=== PATIENT | male | born 1955 | race Caucasian/White ===

== ENCOUNTER 2017-06-10 20:59 | Emergency (ER) | payer MEDICARE ==
[~2017-06-10 20:59] MED LIST: ISOVUE-370 76%-LOCM 1 ML ONE
[2017-06-10] MEDS ORDERED: Fentanyl 100 MCG/2 ML VIAL ONE (22:17)
--- NOTE | 2017-06-10 23:40 | CT ---
CONTRAST ENHANCED CT IMAGES ABDOMEN AND PELVIS 06/10/17 HISTORY: 61-year-old male with left lower quadrant pain. IV contrast was given. Unfortunately oral contrast w as not given. This does decrease the sensitivity for detection of GI pathology. The lung bases demonstrate some minimal areas of scarring and mild fibrotic changes unchanged since the previous exam. No evidence of free intraperitoneal air seen. The liver and spleen are unremarkable. Surgical alexx seen in the stomach. Coronary artery calcifi cations seen. Adrenal glands and kidneys demonstrate no definite evidence of masses. Some calculi se en in the lower pole of the left kidney and mid pole of the left kidney. No evidence of periaortic lymphadenopathy seen. Atherosclerotic calcifications seen in the abdominal aorta. No dilated loops of bowel seen. There does appear to be some fat stranding surrounding the descending colon and portions of the prox imal sigmoid colon this may represent some inflammatory change concerning for possible diverticuliti s. IMPRESSION: Some inflammatory change surrounding the descending and proximal sigmoid colon, possibly representi ng changes of diverticulitis. No definite evidence of an abscess is seen. POS: [facility]
== END 2017-06-11 | disposition home or self-care (01) ==
LOC: ERS 20:59
DX: K57.92 Diverticulitis of intestine, part unspecified, without perforation or abscess without bleeding (principal); E11.9 Type 2 diabetes mellitus without complications; I10 Essential (primary) hypertension; F41.9 Anxiety disorder, unspecified; F32.9 Major depressive disorder, single episode, unspecified; F17.220 Nicotine dependence, chewing tobacco, uncomplicated; Z79.82 Long term (current) use of aspirin; Z79.84 Long term (current) use of oral hypoglycemic drugs; Z79.899 Other long term (current) drug therapy
CPT/HCPCS: 74177; 96374; J3010

== ENCOUNTER 2017-07-13 11:15 | Inpatient (IN) | payer MEDICARE ==
[2017-07-14 09:04] VITALS: BMI 35.2
[2017-07-20] MEDS ORDERED: cefOXitin Sodium 2 GM, Syringe 1 ML in Sterile Water 10 ML SLOW IVP SCH (07:15)
[2017-07-20] MEDS ORDERED: Midazolam HCl 2 mg/2 ml Vial ONE ×2 (07:57→09:10)
[2017-07-20] MEDS ORDERED: Fentanyl 100 MCG/2 ML VIAL ONE ×5 (07:57→14:21)
[2017-07-20] MEDS ORDERED: Ketorolac Tromethamine 30 MG/ML VIAL ONE (08:00)
[2017-07-20] MEDS ORDERED: Bupivacaine/Epinephrine 0.25% 30 ML VIAL ONE (09:14)
[2017-07-20] MEDS ORDERED: Lidocaine 1% w/Epinephrine 1:200K 30 ML VIAL ONE (10:12)
[2017-07-20] MEDS: Lorazepam 1 MG TAB PO SCH ×2 (15:00→20:23)
[2017-07-20] MEDS ORDERED: hydrALAZINE 20 MG/ML VIAL SLOW IVP PRN (15:23)
[2017-07-20] MEDS ORDERED: Promethazine HCl 25 MG/ML VIAL IM PRN (15:23)
[2017-07-20] MEDS ORDERED: Ondansetron HCl/PF 4 MG/2 ML Vial IVP PRN (15:23)
[2017-07-20] MEDS ORDERED: Morphine 4 MG/ML VIAL SLOW IVP PRN (15:23)
[2017-07-20] MEDS ORDERED: Morphine 4 MG/ML VIAL ONE (15:29)
[2017-07-20] MEDS ORDERED: Bupivacaine HCl 0.5%/Epinephrine 1:200,000/PF 30 ml Vial ONE (16:26)
[2017-07-20] MEDS ORDERED: Bupivacaine PF 0.5% 30 ML VIAL ONE (16:26)
[2017-07-20] MEDS ORDERED: Ondansetron HCl/PF 4 MG/2 ML Vial ONE (16:34)
[2017-07-20] MEDS ORDERED: Propofol 200 MG/20 ML VIAL ONE (16:34)
[2017-07-20] MEDS ORDERED: Lidocaine 1% PF 5 ML VIAL ONE (16:34)
[2017-07-20] MEDS ORDERED: Glycopyrrolate 0.2 MG/ML 5 ML SYRINGE ONE (16:34)
[2017-07-20] MEDS ORDERED: Dexamethasone 20 MG/5 ML VIAL ONE (16:34)
[2017-07-20] MEDS ORDERED: PHENYLEPHRINE-NS 100 MCG/ML 10 ML SYRINGE ONE (16:34)
[2017-07-20] MEDS: metFORMIN 500 MG TAB PO SCH (18:16)
[2017-07-20] MEDS: D5 1/2 NS w/20 mEq KCL 1,000 ML IV SCH ×2 (18:50→23:54)
[2017-07-20] MEDS: Ketorolac Tromethamine 30 MG/ML VIAL IVP SCH ×2 (18:50→23:54)
[2017-07-20] MEDS: Acetaminophen 1,000 MG in Premix Bag 1 BAG IVPB SCH ×2 (18:51→23:55)
[2017-07-20] MEDS: Lacosamide 50 mg Tablet PO SCH (20:22)
[2017-07-20] MEDS: Famotidine 20 MG TAB PO SCH (20:22)
[2017-07-20] MEDS: Temazepam 15 MG CAP PO SCH (20:23)
[2017-07-20] MEDS: Metoprolol Tartrate 100 MG TAB PO SCH (20:23)
[2017-07-20] MEDS: Famotidine/PF 20 mg/2ml Vial SLOW IVP SCH (20:28)
[2017-07-20] MEDS: Enoxaparin Sodium 40 MG/0.4 ML SYRINGE SC SCH (20:28)
[2017-07-21] MEDS: Ketorolac Tromethamine 30 MG/ML VIAL IVP SCH ×3 (05:19→18:06)
[2017-07-21] MEDS: Acetaminophen 1,000 MG in Premix Bag 1 BAG IVPB SCH ×2 (05:20→12:20)
[2017-07-21] MEDS: Morphine 4 MG/ML VIAL SLOW IVP PRN ×2 (05:20→12:25)
[2017-07-21] MEDS: Levothyroxine Sodium 88 MCG TAB PO SCH (05:26)
[2017-07-21 06:27] LABS: #Lymphocytes 2.4 thou/uL (1.20-3.40); #Monocytes 1.5 thou/uL (0.11-0.59); #Neutrophils 7.9 thou/uL (1.40-6.50); %Basophils 0.3 % (0.0-1.0); %Eosinophils 0.1 % (0.0-10.0); %Lymphocytes 20.4 % (21.0-51.0); %Monocytes 12.4 % (0.0-10.0); Hematocrit 41.7 % (42.0-52.0); Red Blood Cell (RBC) Count 4.46 mill/uL (4.70-6.10); White Blood Cell (WBC) Count 11.9 thou/uL (4.8-10.8)
[2017-07-21 06:32] LABS: Anion Gap 11 mmol/L (10-20); BUN (Urea Nitrogen) 9 mg/dL (8.4-25.7); Calc. Creatinine Clearance 153 mL/min (70-130); Calcium 8.8 mg/dL (7.8-10.44); Carbon Dioxide 24 mmol/L (22-29); Chloride 103 mmol/L (98-107); Estimated GFR-MDRD Greater than 90
[2017-07-21] MEDS: Metoprolol Tartrate 100 MG TAB PO SCH ×3 (09:01→20:55)
[2017-07-21] MEDS: Lisinopril 20 MG TAB PO SCH (09:01)
[2017-07-21] MEDS: Famotidine 20 MG TAB PO SCH ×2 (09:02→20:22)
[2017-07-21] MEDS: Amlodipine 10 MG TAB PO SCH (09:02)
[2017-07-21] MEDS: Aspirin 81 mg Enteric Coated Tablet PO SCH (09:02)
[2017-07-21] MEDS: metFORMIN 500 MG TAB PO SCH ×2 (09:02→18:13)
[2017-07-21] MEDS: Lorazepam 1 MG TAB PO SCH ×3 (09:03→20:23)
[2017-07-21] MEDS: Famotidine/PF 20 mg/2ml Vial SLOW IVP SCH ×2 (09:03→20:13)
[2017-07-21] MEDS ORDERED: HYDROcodone/Acetaminophen 7.5/325 mg Tablet PO PRN ×2 (13:01)
--- NOTE | 2017-07-21 13:51 | PRG ---
DATE OF SERVICE: 07/21/2017 SUBJECTIVE: Mr. Cueto is postoperative day #1 from a laparoscopic sigmoid colectomy. He is without complaint today. He is very happy with his results of his surgery and his recovery thus far. He not es very minimal discomfort. He had discomfort with his Frey catheter which was removed this morning and notes that he has already voided several times since then. He is tolerating his clear liquids a nd denies nausea or bloating. He notes significant rumbling within his bowels. He has already showe red today and ambulated. PHYSICAL EXAMINATION: VITAL SIGNS: He is afebrile. Vital signs are within normal limits. His urine output overnight was 1200 mL. LUNGS: Clear to auscultation. CARDIAC: Regular rate and rhythm. ABDOMEN: Soft and nontender. Incisions are all nicely healed. Bowel sounds are present and normoac tive. LABORATORY STUDIES: His hemoglobin is 14.3. His basic metabolic panel and chemistries are essential ly normal. ASSESSMENT: The patient is doing extremely well following laparoscopic sigmoid colectomy. He will c ontinue clear liquids today and advance to full liquids tomorrow. Assuming he continues to show evid ence of bowel function, I would anticipate discharge tomorrow.
[2017-07-21] MEDS: D5 1/2 NS w/20 mEq KCL 1,000 ML IV SCH ×2 (17:52→19:31)
[2017-07-21] MEDS: Enoxaparin Sodium 40 MG/0.4 ML SYRINGE SC SCH (20:22)
[2017-07-21] MEDS: Temazepam 15 MG CAP PO SCH (20:22)
[2017-07-21] MEDS: Lacosamide 50 mg Tablet PO SCH (20:39)
[2017-07-22] MEDS: Ketorolac Tromethamine 30 MG/ML VIAL IVP SCH ×3 (00:24→12:58)
[2017-07-22] MEDS: Levothyroxine Sodium 88 MCG TAB PO SCH (06:15)
[2017-07-22] MEDS: D5 1/2 NS w/20 mEq KCL 1,000 ML IV SCH (06:16)
[2017-07-22] MEDS: Metoprolol Tartrate 100 MG TAB PO SCH (08:27)
[2017-07-22] MEDS: Amlodipine 10 MG TAB PO SCH (08:27)
[2017-07-22] MEDS: Aspirin 81 mg Enteric Coated Tablet PO SCH (08:27)
[2017-07-22] MEDS: Lisinopril 20 MG TAB PO SCH (08:28)
[2017-07-22] MEDS: Lorazepam 1 MG TAB PO SCH ×2 (08:28→13:01)
[2017-07-22] MEDS: Famotidine 20 MG TAB PO SCH (08:28)
[2017-07-22] MEDS: metFORMIN 500 MG TAB PO SCH (08:30)
[2017-07-22] MEDS: Famotidine/PF 20 mg/2ml Vial SLOW IVP SCH (08:53)
[2017-07-22 12:02] VITALS: TEMP 97.8
[2017-07-22 16:06] VITALS: BP 129/80
--- NOTE | 2017-07-23 14:18 | OP ---
DATE OF PROCEDURE: 07/20/2017 PREOPERATIVE DIAGNOSIS: Sigmoid colon diverticulitis. POSTOPERATIVE DIAGNOSIS: Sigmoid colon diverticulitis. OPERATION PERFORMED: Sigmoid colectomy with splenic flexure mobilization. SURGEON: Kirill Jacobson M.D. ANESTHESIA: General endotracheal. INDICATIONS: The patient is a 61-year-old obese white male. He has a long history of markedly sympt omatic interstitial cystitis. He has also been recognized to have had several episodes of sigmoid co richie diverticulitis. He continues to have pain in the left lower quadrant that seemed like potentiall y more related to diverticulitis than the cystitis and he requests surgical resection of this segment of bowel. DESCRIPTION OF OPERATION: Informed consent was obtained. The patient was taken to the operating fel[facility] m where general endotracheal anesthesia was obtained with the patient in supine position. Abdomen wa s prepped with ChloraPrep and draped in sterile fashion. Local anesthetic was infiltrated and a 5-mm supraumbilical incision was created through which a Veress needle was passed into the peritoneal cav ity and pneumoperitoneum established using carbon dioxide up to a pressure of 15 mmHg. A 5-mm trocar port was passed through this same incision. Laparoscopic camera was passed through this port. Unde r direct vision, a 12-mm right lower quadrant port was placed. The bowel was examined and then the e xtraction site was selected in the left lower quadrant. An 8-cm oblique incision was created in the left lower quadrant and muscle splitting technique was used to gain access into the abdominal cavity. The Zak wound retractor was assembled in this area and the GelPort was affixed to the wound retr actor. Left hand was passed into the abdominal cavity and dissection was continued. There was one focal are a of fairly dense diverticular disease and inflammation and this is in the relatively proximal sigmoi d colon. I mobilized the left colon along the white line of Toldt up to the splenic flexure and then completed the splenic flexure mobilization using the LigaSure device, dissecting the omentum off of the distal transverse colon and fully mobilizing the flexure. Attention was turned to the distal colon. The sigmoid colon was fully mobilized down into the pelvis . There was a fairly long segment of unremarkable sigmoid colon distal to the area of the diverticul ar inflammation. It was decided, however, that would be better to perform an anastomosis close to th e rectosigmoid junction. At the level of the rectosigmoid junction, I dissected the mesenteric windo w and divided the distal sigmoid colon with a single fire of the [place] stapler using a blue load. The mesentery was taken down in a proximal fashion using the LigaSure device and staying relatively c lose to the bowel wall. Once I had dissected beyond the areas of diverticular inflammation, I identi fied a segment of the left colon that would easily reach down into the pelvis to the staple line. Th is was marked and the bowel was then exteriorized through the Zak wound retractor. The operative site was toweled off with sterile towels and segregated instruments were used while the bowel was going to be opened. A colotomy was created and the bowel was inspected for caliber. It w as found to be relatively snagged and had difficulty passing anything that larger than a 29 mm anvil within this. The 29-mm EEA stapler was then selected and the anvil of that stapler was passed throug h the colotomy and brought out the antimesenteric a few centimeters proximally. The colotomy was exc luded with a single fire of the [place] stapler and the resected segment of colon with the colotomy w as then removed from the field. The spike of the anvil was painted with Betadine. Gloves were clay ed before continuing and all instruments used while the bowel was opened were removed from the field. A 3-0 Prolene pursestring suture was placed around the anvil site and the bowel was dropped back do wn into the abdominal cavity. Pneumoperitoneum was reestablished and the laparoscopic surgery was continued. From below, the EEA sizers were carefully passed up to the rectal staple line. The 29-mm EEA stapler was then brought through the anus up to the staple line and the spike was advanced through the stapl e line under direct vision. The anvil in the descending colon was affixed to the stapler. The two s egments were approximated and anastomosed by firing the stapler. The doughnuts were inspected and fo und to be intact. They were not submitted. A leak test was performed by insufflating air through a proctoscope while the anastomosis was under water. There was excellent insufflation of the bowel, bu t no evidence of air leak and the proctoscope was removed. The intra-abdominal contents were thoroughly irrigated. All irrigant was aspirated. There had been no substantial blood loss at any location. The fascia at the 12-mm port site was closed with 0 Vicry l suture using a GraNee needle. All ports and instruments were removed under direct vision. In the left lower quadrant, the fascia was closed with two layers of running #1 PDS suture. Additional loca l anesthetic was infiltrated during closure. Sterile gown and gloves were put on by the members of the closing team. The sterile closing instrume nts were utilized. The wound was thoroughly irrigated with 2 liters of saline under pressure. The i ncisions were then closed using 3-0 Vicryl to approximate the deep layers and 4-0 Monocryl subcuticul ar suture to approximate the skin edges. Dermabond was placed externally. There were no complicatio ns. The patient tolerated the procedure well and was taken to recovery room in stable condition.
== END 2017-07-22 16:46 | disposition home or self-care (01) | DRG 331 ==
LOC: SURG A 07-20 06:12
PROVIDERS: ADMIT Specialist; ATTEND Specialist
PROC: 0DTN4ZZ Resection of Sigmoid Colon, Percutaneous Endoscopic Approach (ICD-10-PCS; principal; 2017-07-20)
PROC: 3E0T3BZ Introduction of Anesthetic Agent into Peripheral Nerves and Plexi, Percutaneous Approach (ICD-10-PCS; 2017-07-20)
DX: K57.32 Diverticulitis of large intestine without perforation or abscess without bleeding (principal); I10 Essential (primary) hypertension; E11.9 Type 2 diabetes mellitus without complications; Z68.35 Body mass index [BMI] 35.0-35.9, adult; E66.9 Obesity, unspecified; Z88.5 Allergy status to narcotic agent; Z82.49 Family history of ischemic heart disease and other diseases of the circulatory system; Z83.3 Family history of diabetes mellitus
CPT/HCPCS: 36415; 36416; 80048; 85025; 88307; 90471; 90732; A4216; G0009; J0131; J0670; J0694; J1100; J1650; J1885; J2001; J2250; J2270; J2405; J2704; J3010; S0020; S0028

== ENCOUNTER 2017-07-14 08:35 | Outpatient (CLI) | payer MEDICARE ==
[2017-07-14 10:09] LABS: #Basophils 0.1 thou/uL (0.0-0.2); #Eosinphils 0.3 thou/uL (0.0-0.7); #Lymphocytes 2.9 thou/uL (1.20-3.40); #Monocytes 0.8 thou/uL (0.11-0.59); #Neutrophils 4.8 thou/uL (1.40-6.50); %Basophils 0.9 % (0.0-1.0); %Eosinophils 3.3 % (0.0-10.0); %Lymphocytes 32.5 % (21.0-51.0); %Monocytes 9.2 % (0.0-10.0); Mean Platelet Volume 6.8 fL (7.4-10.4); Red Blood Cell (RBC) Count 4.83 mill/uL (4.70-6.10); White Blood Cell (WBC) Count 8.9 thou/uL (4.8-10.8)
[2017-07-14 10:16] LABS: Hemoglobin A1c 5.2 % (4.0-6.0)
[2017-07-14 10:28] LABS: Anion Gap 13 mmol/L (10-20); BUN (Urea Nitrogen) 9 mg/dL (8.4-25.7); Calc. Creatinine Clearance 0 mL/min (70-130); Calcium 9.4 mg/dL (7.8-10.44); Carbon Dioxide 25 mmol/L (22-29); Chloride 106 mmol/L (98-107); Estimated GFR-MDRD Greater than 90
== END 2017-07-14 08:36 | disposition home or self-care (01) ==
LOC: LABBT 08:35
PROVIDERS: ATTEND Specialist
DX: Z01.818 Encounter for other preprocedural examination (principal); K57.92 Diverticulitis of intestine, part unspecified, without perforation or abscess without bleeding
CPT/HCPCS: 80048; 83036; 85025; 93005; 93010

== ENCOUNTER 2018-06-26 13:29 | Emergency (ER) | payer MEDICARE ==
[2018-06-26 14:40] LABS: Hemoglobin 7.4 g/dL (14.0-18.0); Mean Corpuscular Hemoglobin 29.6 pg (27.0-31.0); Mean Corpuscular Volume 92.4 fL (78.0-98.0); Mean Platelet Volume 6.2 fL (7.4-10.4); Platelet Count 430 thou/uL (130-400); RBC Distribution Width 13.9 % (11.5-14.5); White Blood Cell (WBC) Count 31.6 thou/uL (4.8-10.8)
[2018-06-26 14:43] LABS: INR-International Normal Ratio 1.3; PTT 43.8 SEC (22.9-36.1); Prothrombin Time 16.2 SEC (12.0-14.7)
[2018-06-26] MEDS ORDERED: Fentanyl 100 MCG/2 ML VIAL ONE (14:47)
[2018-06-26 14:57] LABS: ALT (SGPT) 41 U/L (8-55); AST (SGOT) 27 U/L (5-34); Albumin 3.9 g/dL (3.4-4.8); Alkaline Phosphatase 90 U/L (40-150); Anion Gap 17 mmol/L (10-20); BUN (Urea Nitrogen) 46 mg/dL (8.4-25.7); Bilirubin, Total 0.5 mg/dL (0.2-1.2); Calc. Creatinine Clearance 0 mL/min (70-130); Calcium 9.1 mg/dL (7.8-10.44); Carbon Dioxide 13 mmol/L (23-31); Chloride 105 mmol/L (98-107); Estimated GFR-MDRD 28; Globulin 3.3 g/dL (2.4-3.5); Glucose 129 mg/dL (80-115); Lipase 103 U/L (8-78); Protein, Total 7.2 g/dL (5.8-8.1); Sodium 128 mmol/L (136-145)
[2018-06-26 15:04] LABS: Band 14 % (5-11); Lymphocytes 1 % (21-51); MDiff Complete? YES; Neutrophil 85 % (42-75); PLT Morphology Comment Appears Increased
[2018-06-26 15:13] LABS: Potassium 7.2 mmol/L (3.5-5.1)
[2018-06-26] MEDS ORDERED: Piperacillin/Tazobactam 4.5 GM VIAL ONE (15:30)
[2018-06-26] MEDS ORDERED: Dextrose 50% Abboject 50 ML SYRINGE ONE (15:31)
[2018-06-26] MEDS ORDERED: Insulin Regular 300 UNITS/3 ML VIAL ONE (15:31)
[2018-06-26] MEDS ORDERED: Calcium Chloride 1 GM/10 ML Abboject SYRINGE ONE (15:31)
[2018-06-26 15:40] LABS: Bilirubin Negative (Negative); Blood, Urine Moderate (Negative); Clarity CLOUDY (Clear); Glucose, Urine (Dipstick) Negative (Negative); Leukocyte Large (Negative); Nitrite Negative (Negative); Protein, Urine (Dipstick) 30 mg/dL (Neg-Trace); Urobilinogen 0.2 mg/dL (0.2-1.0)
[2018-06-26 15:41] LABS: Bacteria/HPF 4+ HPF (None Seen); Squamous Epithelial 0-3 HPF (0-3)
[2018-06-26 15:43] LABS: Yeast-AUWi Flag 49.5 (0-25.0)
--- NOTE | 2018-06-26 15:51 | RAD ---
CHEST ONE VIEW: History: Fever. Comparison: 01-23-17 FINDINGS: Heart size is moderately enlarged. No focal airspace consolidation, pneumothorax or effusion. No acut e osseous abnormality. IMPRESSION: Cardiomegaly. POS: [facility]
[2018-06-26 15:53] LABS: Hyaline Casts/LPF 0-3 HYALINE CAST LPF (0-3 Hyaline); Manual Microscopic Reviewed? No Path Casts Seen; Yeast-All Forms None Seen HPF (None Seen)
--- NOTE | 2018-06-26 15:57 | CT ---
CT ABDOMEN AND PELVIS WITHOUT CONTRAST: Date: 06/26/18 HISTORY: Abdominal pain. FINDINGS: Lung bases are clear. No pericardial effusion. Prior gastric bypass surgery. There is an ileal conduit which appears normal, extending to the ostomy in the right lower quadrant o f the abdomen. There is a calculus inferior left renal collecting system measuring 3.0 mm. Smaller calculus measures 2.0 mm. Another calculus measures 3.0 mm. Total of three calculi. Mild prominence of left renal isaias ecting system without overt dilatation. This is usually a normal finding in a patient with ileal cond uit. Suture material sigmoid colon. No dilated loops of large or small bowel. Noncontrast evaluation of spleen, pancreas, liver, and gallbladder are unremarkable. IMPRESSION: 1. Nonobstructing left renal calculi. 2. Ileal conduit in the right lower quadrant appears normal. The mild dilatation of left renal colle cting system is usually normal in a patient with this procedure. POS: [facility]
[2018-06-26] MEDS ORDERED: Vancomycin HCl 1.5 GM in Sodium Chloride 0.9% 250 ML 300 ML IVPB SCH (16:30)
[2018-06-26] MEDS ORDERED: Iopamidol 370 76% 50 ML VIAL FS ONE (16:53)
[2018-06-26 18:53] LABS: Lactic Acid 3.3 mmol/L (0.5-2.2)
== END 2018-06-26 19:10 | disposition short-term general hospital (02) ==
LOC: ERS 13:29
DX: A41.9 Sepsis, unspecified organism (principal); N17.9 Acute kidney failure, unspecified; E87.6 Hypokalemia; I95.9 Hypotension, unspecified; N39.0 Urinary tract infection, site not specified; E11.9 Type 2 diabetes mellitus without complications; I10 Essential (primary) hypertension; F41.9 Anxiety disorder, unspecified; F32.9 Major depressive disorder, single episode, unspecified; Z79.899 Other long term (current) drug therapy; Z79.82 Long term (current) use of aspirin; Z79.84 Long term (current) use of oral hypoglycemic drugs
CPT/HCPCS: 36430; 71045; 74176; 80053; 82962; 83605; 83690; 85025; 85610; 85730; 86850; 86900; 86901; 86920; 87040; 87077; 87086; 87186; 93005; 94760; 96361; 96365; 96375; 99285; P9016; 36415; 36416; 81003; 81015; J1815; J2543; J3010; J3370; J7050